=== PATIENT | male | born 1965 | race Caucasian/White ===

== ENCOUNTER 2018-05-23 10:03 | Observation (INO) | payer OTHER ==
[2018-05-23] MEDS ORDERED: MAG HYDROX/AL HYDROX/SIMETH 30 ML, HYOSCYAMINE ELIXIR 10 ML, CIMETIDINE HCL 300 MG, LID... PO STA ×4 (10:25)
[2018-05-23] MEDS ORDERED: FAMOTIDINE 20 MG/2 ML VIAL IV STA (10:25)
--- NOTE | 2018-05-23 10:28 | ED ---
General Adult HPI - General Chief complaint: Chest Pain Stated complaint: chest pain Time Seen by Provider: 05/23/18 10:10 Source: patient, RN notes reviewed, old records reviewed Mode of arrival: wheelchair Limitations: no limitations - History of Present Illness Initial comments: 52-year-old male presents for evaluation of substernal chest pain. Patient has been having episodic chest pain for the past several days. Episodes last 1-2 minutes. They are substernal chest pain reported as severe. It pain is nonexertional. Patient states it has been occurring more frequently at night. He denies any chest pain throughout the day when he is active. He has no history of CAD. No history of hypertension or diabetes. He is a current smoker. He does admit to drinking 6-8 beers daily. Denies abdominal pain. He has experienced gastric reflux in the past states this is different from previous episodes of heartburn. No significant family history of heart disease. Chest pain-free at the time my evaluation. - Related Data Home Medications Medication Instructions Recorded Confirmed Aspirin EC [Ecotrin Low Dose] 81 mg PO DAILY 05/23/18 05/23/18 Allergies Allergy/AdvReac Type Severity Reaction Status Date / Time No Known Allergies Allergy Verified 05/23/18 10:36 Review of Systems ROS Statement: Those systems with pertinent positive or pertinent negative responses have been documented in the HPI. ROS Other: All systems not noted in ROS Statement are negative. Past Medical History Past Medical History: No Reported History History of Any Multi-Drug Resistant Organisms: None Reported Past Surgical History: No Surgical Hx Reported Past Psychological History: No Psychological Hx Reported Smoking Status: Current every day smoker Past Alcohol Use History: Daily Past Drug Use History: None Reported General Exam Limitations: no limitations General appearance: alert Head exam: Present: atraumatic, normocephalic Eye exam: Present: normal appearance. Absent: PERRL, EOMI Neck exam: Present: normal inspection. Absent: tenderness, meningismus Respiratory exam: Present: normal lung sounds bilaterally. Absent: respiratory distress Cardiovascular Exam: Present: regular rate, normal rhythm GI/Abdominal exam: Present: soft. Absent: distended, tenderness, guarding, rebound Extremities exam: Present: normal inspection, normal capillary refill. Absent: pedal edema, calf tenderness Neurological exam: Present: alert, oriented X3, CN II-XII intact. Absent: motor sensory deficit Psychiatric exam: Present: normal affect, normal mood Skin exam: Present: warm, dry, intact. Absent: cyanosis, diaphoretic Course Vital Signs 05/23/18 05/23/18 10:05 11:00 Temperature 98.2 F Pulse Rate 78 71 Respiratory 16 13 Rate Blood Pressure 154/89 134/89 O2 Sat by Pulse 100 96 Oximetry - Reevaluation(s) Reevaluation #1: 05/23/18 12:05 Patient remains chest pain-free while in the emergency department EKG Findings - EKG Comments: EKG Findings:: EKG: Normal sinus rhythm, rate of 70, ME interval 168, QRS duration 80, QTC 41, no ST segment elevation Medical Decision Making - Medical Decision Making 52-year-old male presenting with intermittent chest pain. Patient asymptomatic at the time my evaluation, EKG nonischemic. Chest x-ray negative for acute cardiopulmonary disease, CBC, CMP are within normal limits, initial troponin is negative. Given the patient's risk factors he will be kept in observation for telemetry, cardiac enzymes, cardiology consultation. Case discussed discussed with admitting physician, will accept. - Lab Data Result diagrams: 05/23/18 10:29 05/23/18 10:29 Lab Results 05/23/18 05/23/18 05/23/18 Range/Units 10:29 10:29 10:29 WBC 8.3 (3.8-10.6) k/uL RBC 5.31 (4.30-5.90) m/uL Hgb 17.0 (13.0-17.5) gm/dL Hct 50.0 (39.0-53.0) % MCV 94.3 (80.0-100.0) fL MCH 32.0 (25.0-35.0) pg MCHC 34.0 (31.0-37.0) g/dL RDW 12.9 (11.5-15.5) % Plt Count 265 (150-450) k/uL Neutrophils % 71 % Lymphocytes % 20 % Monocytes % 6 % Eosinophils % 2 % Basophils % 1 % Neutrophils # 5.8 (1.3-7.7) k/uL Lymphocytes # 1.6 (1.0-4.8) k/uL Monocytes # 0.5 (0-1.0) k/uL Eosinophils # 0.1 (0-0.7) k/uL Basophils # 0.1 (0-0.2) k/uL PT (9.0-12.0) sec INR (<1.2) APTT (22.0-30.0) sec Sodium 141 (137-145) mmol/L Potassium 4.3 (3.5-5.1) mmol/L Chloride 108 H (98-107) mmol/L Carbon Dioxide 23 (22-30) mmol/L Anion Gap 10 mmol/L BUN 22 H (9-20) mg/dL Creatinine 1.06 (0.66-1.25) mg/dL Est GFR (CKD-EPI)AfAm >90 (>60 ml/min/1.73 sqM) Est GFR (CKD-EPI)NonAf 80 (>60 ml/min/1.73 sqM) Glucose 96 (74-99) mg/dL Calcium 10.0 (8.4-10.2) mg/dL Magnesium 2.4 H (1.6-2.3) mg/dL Total Bilirubin 0.8 (0.2-1.3) mg/dL AST 19 (17-59) U/L ALT 36 (21-72) U/L Alkaline Phosphatase 51 (38-126) U/L Total Creatine Kinase 71 (55-170) U/L CK-MB (CK-2) 0.6 (0.0-2.4) ng/mL CK-MB (CK-2) Rel Index 0.8 Troponin I <0.012 (0.000-0.034) ng/mL NT-Pro-B Natriuret Pep pg/mL Total Protein 7.0 (6.3-8.2) g/dL Albumin 4.6 (3.5-5.0) g/dL Lipase 57 (23-300) U/L 05/23/18 05/23/18 Range/Units 10:29 10:29 WBC (3.8-10.6) k/uL RBC (4.30-5.90) m/uL Hgb (13.0-17.5) gm/dL Hct (39.0-53.0) % MCV (80.0-100.0) fL MCH (25.0-35.0) pg MCHC (31.0-37.0) g/dL RDW (11.5-15.5) % Plt Count (150-450) k/uL Neutrophils % % Lymphocytes % % Monocytes % % Eosinophils % % Basophils % % Neutrophils # (1.3-7.7) k/uL Lymphocytes # (1.0-4.8) k/uL Monocytes # (0-1.0) k/uL Eosinophils # (0-0.7) k/uL Basophils # (0-0.2) k/uL PT 9.8 (9.0-12.0) sec INR 0.9 (<1.2) APTT 22.8 (22.0-30.0) sec Sodium (137-145) mmol/L Potassium (3.5-5.1) mmol/L Chloride (98-107) mmol/L Carbon Dioxide (22-30) mmol/L Anion Gap mmol/L BUN (9-20) mg/dL Creatinine (0.66-1.25) mg/dL Est GFR (CKD-EPI)AfAm (>60 ml/min/1.73 sqM) Est GFR (CKD-EPI)NonAf (>60 ml/min/1.73 sqM) Glucose (74-99) mg/dL Calcium (8.4-10.2) mg/dL Magnesium (1.6-2.3) mg/dL Total Bilirubin (0.2-1.3) mg/dL AST (17-59) U/L ALT (21-72) U/L Alkaline Phosphatase (38-126) U/L Total Creatine Kinase (55-170) U/L CK-MB (CK-2) (0.0-2.4) ng/mL CK-MB (CK-2) Rel Index Troponin I (0.000-0.034) ng/mL NT-Pro-B Natriuret Pep 48 pg/mL Total Protein (6.3-8.2) g/dL Albumin (3.5-5.0) g/dL Lipase (23-300) U/L Disposition Clinical Impression: Chest pain Disposition: ADMITTED IP TO THIS [facility] Condition: Stable Is patient prescribed a controlled substance at d/c from ED?: No Referrals: None,Stated [Primary Care Provider] - 1-2 days Decision to Admit Reason: Admit from EC Decision Date: 05/23/18 Decision Time: 12:06
--- NOTE | 2018-05-23 10:56 | XR ---
EXAMINATION TYPE: XR chest 2V DATE OF EXAM: 05/23/2018 COMPARISON: NONE HISTORY: Shortness of breath TECHNIQUE: Frontal and lateral views of the chest are obtained. FINDINGS: Scattered senescent parenchymal changes noted. Hyperinflation compatible with COPD. No evidence for infiltrate. No evidence for atelectasis. Heart size is stable. Mediastinal structures are stable and grossly unremarkable. No evidence for hilar prominence. Degenerative changes dorsal spine. IMPRESSION: 1. No evidence for acute pulmonary disease.
[2018-05-23 10:57] LABS: Basophils # (A) 0.1 k/uL (0-0.2); Basophils % (A) 1 %; Eosinophils # (A) 0.1 k/uL (0-0.7); Eosinophils % (A) 2 %; Lymphocytes # (A) 1.6 k/uL (1.0-4.8); Lymphocytes % (A) 20 %; MCV 94.3 fL (80.0-100.0); Monocytes # (A) 0.5 k/uL (0-1.0); Monocytes % (A) 6 %; Neutrophils # (A) 5.8 k/uL (1.3-7.7); Neutrophils % (A) 71 %; Platelet Count 265 k/uL (150-450); RBC 5.31 m/uL (4.30-5.90); RDW 12.9 % (11.5-15.5); WBC 8.3 k/uL (3.8-10.6)
[2018-05-23 11:02] LABS: INR 0.9 (<1.2); Partial Thromboplastin Time 22.8 sec (22.0-30.0); Prothrombin Time 9.8 sec (9.0-12.0)
[2018-05-23 11:04] LABS: ALT 36 U/L (21-72); AST 19 U/L (17-59); Albumin 4.6 g/dL (3.5-5.0); Alkaline Phosphatase 51 U/L (38-126); Anion Gap 10 mmol/L; Blood Urea Nitrogen 22 mg/dL (9-20); Carbon Dioxide 23 mmol/L (22-30); Chloride 108 mmol/L (98-107); Glucose 96 mg/dL (74-99); Lipase 57 U/L (23-300); Magnesium 2.4 mg/dL (1.6-2.3); Potassium 4.3 mmol/L (3.5-5.1); Sodium 141 mmol/L (137-145); Total Bilirubin 0.8 mg/dL (0.2-1.3)
[2018-05-23 11:15] LABS: Creatine Kinase 71 U/L (55-170)
[2018-05-23 11:27] LABS: Creatine Kinase MB 0.6 ng/mL (0.0-2.4); Troponin I <0.012 ng/mL (0.000-0.034)
[2018-05-23] MEDS ORDERED: ACETAMINOPHEN TAB 325 MG TAB PO PRN (12:03)
[2018-05-23] MEDS ORDERED: ASPIRIN 325 MG TAB PO STA (12:03)
[2018-05-23] MEDS ORDERED: NALOXONE 0.4 MG/ML 1 ML VIAL IV PRN (12:03)
[2018-05-23] MEDS ORDERED: MORPHINE SULFATE 4 MG/ML SYRINGE IV PRN (12:03)
[2018-05-23] MEDS ORDERED: ONDANSETRON 4 MG/2 ML VIAL IVP PRN (12:03)
[2018-05-23 14:17] VITALS: BMI 21.7
[2018-05-23] MEDS ORDERED: PNEUMOCOCCAL VACC-PNEUMOVAX 23 25 MCG/0.5 ML VIAL IM ONE (14:35)
[2018-05-23] MEDS ORDERED: INFLUENZA VACCINE (6 MOS+) 60 MCG/0.5 ML SYRINGE IM ONE (14:35)
[2018-05-23] MEDS: SODIUM CHLORIDE 0.9% 1,000 ML IV SCH (14:42)
[2018-05-23 17:45] LABS: Creatine Kinase 63 U/L (55-170)
[2018-05-23 17:58] LABS: Creatine Kinase MB 0.5 ng/mL (0.0-2.4); Troponin I <0.012 ng/mL (0.000-0.034)
[2018-05-23] MEDS: FAMOTIDINE 20 MG TAB PO SCH (20:28)
[2018-05-23] MEDS ORDERED: IPRATROPIUM-ALBUTEROL 3 ML NEB INHALATION PRN (21:06)
--- NOTE | 2018-05-23 21:08 | P.HPIM ---
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 Since then his been having chest pain/pressure like sensation squeezing type on and off lasting about less than 1 minute. Today patient had severe retrosternal chest pain is associated with left arm tingling. Denied any shortness of breath. Patient says that it does not look like her usual heart burn pain. No associated nausea vomiting or diaphoresis. Denied any recent illnesses. No cough or sputum production. Patient does have history of GERD. Denied any family history of coronary artery disease. Patient does smoke about 2 packs per day and 6-8 beers per day. Patient had last drink 3 days ago. Troponin 2 negative Chest x-ray showed no evidence of acute pulmonary disease EKG showed normal sinus rhythm. Review of Systems Constitutional: Patient denies any fever or chills . No generalized weakness or weight loss. Abdomen: Patient denied nausea vomiting and diarrhea and abdominal pain. Cardiovascular: Retrosternal chest pain. No shortness of breath. No palpitations.. Respiratory: patient denied any cough is from production. No shortness of breath Neurologic: Patient denied any numbness or tingling headache. Musculoskeletal: Patient denies any complaints of joint swelling or deformity. Skin: Negative Psychiatric: Negative Endocrine: No heat or cold intolerance. No recent weight gain. Genitourinary: No dysuria or hematuria. All other 14 point ROS negative except the above Past Medical History Past Medical History: CVA/TIA Additional Past Medical History / Comment(s): TIA 5-6 yrs ago. History of Any Multi-Drug Resistant Organisms: None Reported Past Surgical History: Orthopedic Surgery Additional Past Surgical History / Comment(s): L hand/finger surgery d/t injury Past Anesthesia/Blood Transfusion Reactions: No Reported Reaction Past Psychological History: No Psychological Hx Reported Additional Psychological History / Comment(s): Pt resides with his spouse. He uses no assistive device. He drives. He is a centeno. Smoking Status: Current every day smoker Past Alcohol Use History: Daily Additional Past Alcohol Use History / Comment(s): Pt started smoking in 1980 and is a 2 ppd smoker. Pt drinks 6-8 beers a day. Past Drug Use History: None Reported - Past Family History Father Family Medical History: CVA/TIA Additional Family Medical History / Comment(s): Father of a CVA at the age of 72 yrs. Mother Additional Family Medical History / Comment(s): Mother in a MVA. Medications and Allergies Home Medications Medication Instructions Recorded Confirmed Type Aspirin EC [Ecotrin Low Dose] 81 mg PO DAILY 05/23/18 05/23/18 History Allergies Allergy/AdvReac Type Severity Reaction Status Date / Time No Known Allergies Allergy Verified 05/23/18 10:36 Physical Exam Vitals: Vital Signs Temp Pulse Pulse Resp BP BP Pulse Ox 05/23/18 13:55 98.3 F 57 L 18 147/84 97 05/23/18 13:50 98 F 05/23/18 13:00 60 12 126/77 98 05/23/18 12:00 68 16 111/73 99 05/23/18 11:00 71 13 134/89 96 05/23/18 10:05 98.2 F 78 16 154/89 100 Intake and Output 05/23/18 05/23/18 05/23/18 06:59 14:59 22:59 Intake Total 480 Balance 480 Intake: Oral 480 Other: # Voids 0 Weight 72.575 kg PHYSICAL EXAMINATION: Patient is lying in the bed comfortably, no acute distress, awake alert and oriented.. HEENT: Normocephalic. Neck is supple. Pupils reactive. Nostrils clear. Oral cavity is moist. Ears reveal no drainage. Neck reveals no JVD, carotid bruits, or thyromegaly. CHEST EXAMINATION: Trachea is central. Symmetrical expansion. Bilateral slow air entry. Lung mcconnell clear to auscultation and percussion. CARDIAC: Normal S1, S2 with no gallops. No murmurs ABDOMEN: Soft. Bowel sounds normal. No organomegaly. No abdominal bruits. Extremities: reveal no edema. No clubbing or cyanosis Neurologically awake, alert, oriented x3 with well-coordinated movements. No focal deficits noted Skin: No rash or skin lesions. Psychiatric: Coperative. Nonsuicidal Musculoskeletal: No joint swelling or deformity. Normal range of motion. Results CBC & Chem 7: 05/23/18 10:29 05/23/18 10:29 Labs: Abnormal Lab Results - Last 24 Hours (Table) 05/23/18 Range/Units 10:29 Chloride 108 H (98-107) mmol/L BUN 22 H (9-20) mg/dL Magnesium 2.4 H (1.6-2.3) mg/dL Thrombosis Risk Factor Assmnt - DVT/VTE Prophylaxis DVT/VTE Prophylaxis: Pharmacologic Prophylaxis ordered - Choose All That Apply Each Factor Represents 1 point: Age 41-60 years Thrombosis Risk Factor Assessment Total Risk Factor Score: 1 Thrombosis Risk Factor Assessment Level: Low Risk Assessment and Plan Assessment: Atypical chest pain. Rule out ACS. Likely related to GI Possible underlying COPD Alcohol use an daily basis Nicotine addiction 2 pack per day GERD History of CVA/TIA with no residual weakness DVT Prophylaxis Plan: Patient will be continued on telemetry monitoring. Troponin 2 negative. Patient was given Maalox in the ER. Continue Pepcid. DuoNeb's when necessary. Patient will be started on thiamine and multivitamins. Alcohol abstinence has been counseled extensively. Cardiology was consulted. Further recommendations based on the clinical course. Patient will need pulmonary follow-up as an outpatient. Time with Patient: Greater than 30
[2018-05-23 23:18] LABS: Creatine Kinase 62 U/L (55-170)
[2018-05-23 23:28] LABS: Creatine Kinase MB 0.4 ng/mL (0.0-2.4); Troponin I <0.012 ng/mL (0.000-0.034)
[2018-05-24] MEDS: HEPARIN SODIUM,PORCINE 5,000 UNIT/ML 1 ML VIAL SQ SCH ×2 (00:14→07:27)
--- NOTE | 2018-05-24 08:07 | P.CRDCN ---
History of Present Illness Consult date: 05/24/18 Chief complaint: Chest pain History of present illness: This is a pleasant 52-year-old gentleman with a past medical history significant for history of TIA as well as significant history of smoking presented to the emergency room complaining of chest discomfort. He was in his usual state of health until about 3 days ago when he started experiencing chest discomfort. The patient describes intermittent episodes of chest discomfort, in the mid of the chest, with some radiation to the left arm, without any associated symptoms of shortness of breath, sweating, dizziness or lightheadedness, nausea or vomiting, or syncope. The chest discomfort is of variable duration. Its also not exertional and have any mainly during the night. The EKG showed sinus rhythm without any significant ST or T-wave abnormalities. 3 sets of cardiac enzymes were checked and came in to be unremarkable. The chest x-ray did not show any acute abnormalities. Interval past medical history he does have no coronary artery disease, diabetes , hypertension, or dyslipidemia. He did have an episode of TIA in the past with no residual symptoms. The patient continues to smoke about 2 packs of cigarettes every day. He stated that he is working on smoking cessation. He drinks about 8 beers everyday. No immediate family member with coronary artery disease. Past Medical History Past Medical History: CVA/TIA Additional Past Medical History / Comment(s): TIA 5-6 yrs ago. History of Any Multi-Drug Resistant Organisms: None Reported Past Surgical History: Orthopedic Surgery Additional Past Surgical History / Comment(s): L hand/finger surgery d/t injury Past Anesthesia/Blood Transfusion Reactions: No Reported Reaction Past Psychological History: No Psychological Hx Reported Additional Psychological History / Comment(s): Pt resides with his spouse. He uses no assistive device. He drives. He is a centeno. Smoking Status: Current every day smoker Past Alcohol Use History: Daily Additional Past Alcohol Use History / Comment(s): Pt started smoking in 1980 and is a 2 ppd smoker. Pt drinks 6-8 beers a day. Past Drug Use History: None Reported - Past Family History Father Family Medical History: CVA/TIA Additional Family Medical History / Comment(s): Father of a CVA at the age of 72 yrs. Mother Additional Family Medical History / Comment(s): Mother in a MVA. Medications and Allergies Home Medications Medication Instructions Recorded Confirmed Type Aspirin EC [Ecotrin Low Dose] 81 mg PO DAILY 05/23/18 05/23/18 History Allergies Allergy/AdvReac Type Severity Reaction Status Date / Time No Known Allergies Allergy Verified 05/23/18 10:36 Physical Exam Vitals: Vital Signs Temp Pulse Pulse Resp BP BP BP 05/24/18 07:59 18 05/24/18 04:00 18 05/24/18 03:59 97.6 F 62 18 135/80 05/24/18 00:00 16 05/23/18 23:57 98.1 F 76 16 122/70 05/23/18 20:00 98.6 F 85 16 136/74 05/23/18 16:00 68 18 05/23/18 15:43 98.5 F 68 18 129/85 05/23/18 15:40 05/23/18 13:55 98.3 F 57 L 18 147/84 05/23/18 13:50 98 F 05/23/18 13:00 60 12 126/77 05/23/18 12:00 68 16 111/73 05/23/18 11:00 71 13 134/89 05/23/18 10:05 98.2 F 78 16 154/89 Pulse Ox 05/24/18 07:59 05/24/18 04:00 05/24/18 03:59 97 05/24/18 00:00 05/23/18 23:57 98 05/23/18 20:00 96 05/23/18 16:00 05/23/18 15:43 97 05/23/18 15:40 98 05/23/18 13:55 97 05/23/18 13:50 05/23/18 13:00 98 05/23/18 12:00 99 05/23/18 11:00 96 05/23/18 10:05 100 Intake and Output 05/23/18 05/24/18 05/24/18 22:59 06:59 14:59 Other: Voiding Method Toilet Toilet Toilet # Voids 1 1 1 - Constitutional General appearance: no acute distress - Respiratory Respiratory: bilateral: CTA - Cardiovascular Rhythm: regular Heart sounds: normal: S1, S2 Results 05/23/18 10:29 05/23/18 10:29 Cardiac Enzymes 05/23/18 05/23/18 05/23/18 Range/Units 10:29 10:29 17:21 AST 19 (17-59) U/L CK-MB (CK-2) 0.6 0.5 (0.0-2.4) ng/mL Troponin I <0.012 <0.012 (0.000-0.034) ng/mL 05/23/18 Range/Units 22:23 AST (17-59) U/L CK-MB (CK-2) 0.4 (0.0-2.4) ng/mL Troponin I <0.012 (0.000-0.034) ng/mL Coagulation 05/23/18 Range/Units 10:29 PT 9.8 (9.0-12.0) sec APTT 22.8 (22.0-30.0) sec CBC 05/23/18 Range/Units 10:29 WBC 8.3 (3.8-10.6) k/uL RBC 5.31 (4.30-5.90) m/uL Hgb 17.0 (13.0-17.5) gm/dL Hct 50.0 (39.0-53.0) % Plt Count 265 (150-450) k/uL Comprehensive Metabolic Panel 05/23/18 Range/Units 10:29 Sodium 141 (137-145) mmol/L Potassium 4.3 (3.5-5.1) mmol/L Chloride 108 H (98-107) mmol/L Carbon Dioxide 23 (22-30) mmol/L BUN 22 H (9-20) mg/dL Creatinine 1.06 (0.66-1.25) mg/dL Glucose 96 (74-99) mg/dL Calcium 10.0 (8.4-10.2) mg/dL AST 19 (17-59) U/L ALT 36 (21-72) U/L Alkaline Phosphatase 51 (38-126) U/L Total Protein 7.0 (6.3-8.2) g/dL Albumin 4.6 (3.5-5.0) g/dL Current Medications Generic Name Dose Route Start Last Admin Trade Name Freq PRN Reason Stop Dose Admin Acetaminophen 650 mg 05/23/18 12:03 Tylenol Tab PO Q6HR PRN Mild Pain or Fever > 100.5 Albuterol/Ipratropium 3 ml 05/23/18 21:06 Duoneb 0.5 Mg-3 Mg/3 Ml Soln INHALATION RT-QID PRN Shortness Of Breath Or Wheezing Famotidine 20 mg 05/23/18 21:00 05/23/18 20:28 Pepcid PO 20 mg BID CONCHITA Administration Heparin Sodium (Porcine) 5,000 unit 05/24/18 00:00 05/24/18 07:27 Heparin SQ Not Given Q8HR CONCHITA Sodium Chloride 1,000 mls @ 75 mls/hr 05/23/18 12:15 05/23/18 14:42 Saline 0.9% IV Not Given .[id number] CONCHITA Morphine Sulfate 4 mg 05/23/18 12:03 05/24/18 05:16 Morphine Sulfate (Inj) IV 4 mg Q4HR PRN Administration Severe Pain Multivitamins 1 each 05/24/18 12:00 Theragran PO DAILY@1200 CONCHITA Naloxone HCl 0.2 mg 05/23/18 12:03 Narcan IV Q2M PRN Opioid Reversal Ondansetron HCl 4 mg 05/23/18 12:03 Zofran IVP Q8HR PRN Nausea And Vomiting Thiamine HCl 100 mg 05/24/18 12:00 Vitamin B-1 PO DAILY@1200 CONCHITA Intake and Output 05/23/18 05/24/18 05/24/18 22:59 06:59 14:59 Other: Voiding Method Toilet Toilet Toilet # Voids 1 1 1 05/23/18 10:29 05/23/18 10:29 Assessment and Plan Assessment: Assessment #1 intermittent episodes of atypical chest discomfort #2 significant history of smoking #3 history of TIA in the past Plan #1 acute coronary event was ruled out. The patient did have 3 sets of cardiac enzymes and EKG and old came in to be unremarkable #2 severe underlying coronary artery disease to be ruled out. Giving the patient significant history of smoking and history of TIA in the past #3 I will obtain an echocardiogram was Doppler #4 stress test to rule out any severe CAD. That can happen either as inpatient or outpatient depends on the patient's symptoms. Thank you for allowing us participate in his care.
[2018-05-24] MEDS: FAMOTIDINE 20 MG TAB PO SCH ×2 (10:46→11:18)
[2018-05-24] MEDS: SODIUM CHLORIDE 0.9% 1,000 ML IV SCH (10:50)
[2018-05-24] MEDS ORDERED: PANTOPRAZOLE 40 MG TABLET PO SCH (11:45)
[2018-05-24] MEDS ORDERED: MULTIVITAMINS, THERA 1 EACH TAB PO SCH (12:00)
[2018-05-24] MEDS ORDERED: THIAMINE 100 MG TAB PO SCH (12:00)
[2018-05-24 12:04] VITALS: BP 120/76; PULSE 75; RESP 18; TEMP 98
== END 2018-05-24 12:41 | disposition home or self-care (01) ==
LOC: EC 10:03 → 1SOBS 12:04
PROVIDERS: ADMIT Internal Medicine; ATTEND Internal Medicine
DX: R07.2 Precordial pain (principal); R20.2 Paresthesia of skin; K21.9 Gastro-esophageal reflux disease without esophagitis; F10.10 Alcohol abuse, uncomplicated; F17.210 Nicotine dependence, cigarettes, uncomplicated; Z86.73 Personal history of transient ischemic attack (TIA), and cerebral infarction without residual deficits; Z79.82 Long term (current) use of aspirin; Z23 Encounter for immunization
CPT/HCPCS: 96375; 96374; 99285; 36415; 93005; 83880; 80053; 82550; 82553; 83690; 83735; 84484; 85025; 85610; 85730; 71046; 90732; 90686; G0378 ×2; G0008; G0009; J2270

== ENCOUNTER → 2024-05-28 | Outpatient (CLI) | payer BC ==
--- NOTE | 2024-05-28 09:59 | MR ---
EXAMINATION TYPE: MR shoulder RT wo con DATE OF EXAM: 05/28/2024 9:01 AM COMPARISON: Radiograph 05/26/2024 CLINICAL INDICATION: Male, 58 years old with history of M25.511 R shoulder pain, Right shoulder pain for 3 months TECHNIQUE: Multiplanar, multisequence imaging of the right shoulder is performed without contrast. FINDINGS: There is thickening and heterogeneous signal intracapsular portion of the lung and biceps tendon. Int racapsular portion appears intact but with moderate tenosynovial fluid. Diffuse heterogeneity and intrasellar within the subscapularis tendon. The majority of the tendon rem ains intact. Moderate to severe degenerative change AC joint with joint space narrowing, marginal spurring, and ca psular hypertrophy. Reactive subchondral marrow edema seen. Inferior spurring encroaches onto the sub acromial space. There is a large full-thickness tear of the entire supraspinatus tendon measuring 3.6 cm long and 2.6 cm AP. Fluid within the intervening gap. Diffuse thickening and heterogeneity of the infraspinatus tendon. No atrophy of the rotator cuff musculature. Mild effusion within the subacromial/subdeltoid bursa. There is some fluid signal undercutting the labral chondral junction superior glenoid from the biceps anchor to the posterior aspect of the superior labrum. No para labral cyst. Glenohumeral joint appears intact but with mild thickness cartilage loss along the superior humeral h ead articular surface. Small glenohumeral joint effusion may be physiologic. No Hill-Sachs deformity or os acromiale. Some patchy red marrow signal without suspicious bone marrow replacement. IMPRESSION: 1. Moderate to severe diffuse rotator cuff tendinosis. There is a large, full-thickness tear involvin g the entire supraspinatus tendon. Stump retracted by 3.6 cm to below the acromion. 2. No rotator cuff muscle atrophy. 3. Moderate to severe AC joint OA with inferior spurring which may contribute to subacromial impingem ent. 4. Intracapsular long head biceps tendinosis and mild tenosynovitis. 5. Mild cartilage thinning along the superior humeral head articular surface. Small superior labral t ear suggested. [facility], Workstation: [facility], 05/28/2024 9:56 AM
== END | disposition home or self-care (01) ==
LOC: RADMRIMAIN 08:04
PROVIDERS: ATTEND Orthopaedic Surgery
DX: M67.813 Other specified disorders of tendon, right shoulder (principal); M19.011 Primary osteoarthritis, right shoulder; M65.911 Unspecified synovitis and tenosynovitis, right shoulder

== ENCOUNTER → 2024-07-13 | Outpatient (CLI) | payer BC ==
[2024-07-13 20:42] LABS: Basophils # (A) 0.07 X 10*3/uL (0.00-0.10); Basophils % (A) 0.8 %; Eosinophils # (A) 0.11 X 10*3/uL (0.04-0.35); Eosinophils % (A) 1.3 %; HCT 47.1 % (39.6-50.0); HGB 15.9 g/dL (13.0-17.0); Lymphocytes # (A) 1.73 X 10*3/uL (0.90-5.00); Lymphocytes % (A) 20.3 %; MCHC 33.8 g/dL (32.0-37.0); MCV 94.8 FL (80.0-97.0); Mean Platelet Volume 10.5 FL (9.5-12.2); Monocytes # (A) 0.57 X 10*3/uL (0.20-1.00); Monocytes % (A) 6.7 %; NRBC Per 100 WBC 0 X 10*3/uL (0.00-0.01); Neutrophils # (A) 6.02 X 10*3/uL (1.80-7.70); Neutrophils % (A) 70.8 %; Platelet Count 248 X 10*3/uL (140-440); RBC 4.97 X 10*6/uL (4.40-5.60); RDW 12.4 % (11.5-14.5); WBC 8.51 X 10*3/uL (4.50-10.00)
[2024-07-13 21:05] LABS: Anion Gap 10.6 mmol/L (4.00-12.00); Carbon Dioxide 26.4 mmol/L (21.6-31.8); Potassium 3.8 mmol/L (3.5-5.5)
== END | disposition home or self-care (01) ==
LOC: LABWHC1 13:12
PROVIDERS: ATTEND Orthopaedic Surgery
DX: Z01.818 Encounter for other preprocedural examination (principal); M75.41 Impingement syndrome of right shoulder
CPT/HCPCS: 36415; 80051; 85025; 93005

== ENCOUNTER 2024-07-22 05:50 | Day surgery (SDC) | payer BC ==
[2024-07-17 11:02] VITALS: BMI 25.1
--- NOTE | 2024-07-21 13:48 | HP ---
HISTORY AND PHYSICAL ANTICIPATED DATE OF SURGERY: 07/22/2024. HISTORY OF PRESENT ILLNESS: Joaquín Galicia is a 58-year-old gentleman seen with progressive right shoulder pain. We discussed treatment options. He elected to proceed with right shoulder arthroscopy. Consent was obtained. PAST MEDICAL HISTORY: Noncontributory. SURGICAL HISTORY: Noncontributory. DAILY MEDICATIONS: None. ALLERGIES: None reported. SOCIAL HISTORY: Smokes cigarettes. PHYSICAL EVALUATION OF RIGHT SHOULDER: Flexion is 150 degrees. Abduction is 130 degrees. External rotation is 40 degrees with some pain and weakness. He is tender along the anterolateral acromion, rotator cuff insertion as well as long head of biceps tendon, and bicipital groove. Impingement sign is positive at 70 degrees. Drop-arm sign is positive. Distal neurovascular exam is intact. IMAGING DATA: Radiographs of right shoulder, type 3 acromion, acromioclavicular joint osteoarthritis, cystic changes of the tuberosity. MRI of right shoulder, we retracted rotator cuff tendon tear, severe acromioclavicular joint osteoarthritis, biceps tendinitis. IMPRESSION: 1. Right shoulder impingement with rotator cuff tear. 2. Right shoulder acromioclavicular joint osteoarthritis. 3. Right shoulder bicipital tendinitis. PLAN: Right shoulder arthroscopy with subacromial decompression, arthroscopic rotator cuff repair, Abbe, biceps tenodesis, and debridement. MMODL / IJN: [id number] /
[2024-07-22] MEDS ORDERED: droPERidol 2.5 MG/ML VIAL IVP ONE (06:14)
[2024-07-22] MEDS ORDERED: HYDROmorphone 0.5 MG/0.5 ML SYRINGE IVP PRN (06:14)
[2024-07-22] MEDS ORDERED: LIDOCAINE 1% (10MG/ML) FOR IV START INTRADERMA PRN (06:14)
[2024-07-22] MEDS: IV FLUID CONTINUATION 1,000 ML IV ONE (06:28)
[2024-07-22] MEDS: LACTATED RINGERS 1,000 ML IV SCH (06:43)
[2024-07-22] MEDS: ONDANSETRON 4 MG/2 ML VIAL IVP ONE (06:43)
[2024-07-22] MEDS: DEXAMETHASONE SOD PHOSPHATE 4 MG/ML 1 ML VIAL IV ONE (06:43)
[2024-07-22] MEDS: MIDAZOLAM 2 MG/2 ML VIAL IV ONE (06:46)
[2024-07-22] MEDS ORDERED: PROPOFOL 10 MG/ML 20 ML VIAL IV ONE (07:44)
[2024-07-22] MEDS ORDERED: DEXAMETHASONE SOD PHOSPHATE 4 MG/ML 1 ML VIAL ONE (07:44)
[2024-07-22] MEDS ORDERED: LIDOCAINE 1% INJ 10MG/ML (20 ML MDV) ONE (07:44)
[2024-07-22] MEDS ORDERED: SUCCINYLCHOLINE CHLORIDE 200 MG/10 ML VIAL IV ONE (07:44)
[2024-07-22] MEDS ORDERED: ROPIVACAINE 5 MG/ML 30 ML VIAL ONE (07:44)
[2024-07-22] MEDS ORDERED: LIDOCAINE 4% LTA KIT (4 ML) TOPICAL ONE (07:44)
[2024-07-22 09:50] VITALS: TEMP 97
--- NOTE | 2024-07-22 09:54 | P.OP ---
Date of Procedure: 07/22/24 Preoperative Diagnosis: Right shoulder impingement Postoperative Diagnosis: 1. Right shoulder rotator cuff tear 2. Right shoulder impingement 3. Right shoulder partial long head biceps tendon tear 4. Right shoulder acromioclavicular joint osteoarthritis 5. Right shoulder superficial labral tear Procedure(s) Performed: 1. Right shoulder arthroscopic rotator cuff repair 2. Right shoulder arthroscopic subacromial decompression 3. Right shoulder arthroscopic biceps tenodesis 4. Right shoulder arthroscopic Abbe procedure 5. Right shoulder arthroscopic debridement labral tear Implants: 4Arthrex 4.75 swivel lock anchors 1Arthrex 5.5 swivel lock anchor Anesthesia: GETA, regional ( interscalene block) Surgeon: Prosper Moser Beadworker #1: Alex Dimas Estimated Blood Loss (ml): 10 Pathology: none sent Condition: stable Disposition: PACU Indications for Procedure: 58-year-old gentleman seen with progressive right shoulder pain. After having treatment options discussed, he elected to proceed with arthroscopy. Operative Findings: See description of procedure Description of Procedure: Patient underwent an interscalene block by department of anesthesia. The patient was then taken to the operative suite. The patient underwent a general anesthetic by the department of anesthesia. The patient was placed into a lateral position and secured. There was appropriate padding of the bony prominence. Right shoulder was then prepped and draped in normal sterile orthopedic fashion. We placed the extremity in 10 pounds of longitudinal traction. A posterior incision was now made for a posterior working portal site. The trocar and cannula were inserted into the glenohumeral joint. Arthroscopy was initiated. Spinal needle was now inserted anteriorly, to ascertain the anterior working portal site. An incision was now made in that area, a trocar was inserted followed by a probe. There was a superficial labral tear present. There were grade I chondromalacia changes of the glenoid fossa without tears. There was partial tearing long head biceps tendon along with a large rotator cuff tendon tear. I reduced a motorized shaver and debrided out the superficial labral tear. I now introduced the cannula through the anterior portal site. I passed a loop and tack stitch through the biceps tendon and release her from the superior labral anchor. With the assistance of Clark GARCIA partial hole at the interval for insertion of an anchor. The suture limb was now passed through the eyelet of an Arthrex 4.75 swivel lock anchor. I placed the eyelet into the prepunched hole, held in position while Clark GARCIA tensioned the suture and deployed the anchor with good fixation noted. The residual suture limb was clipped. We had a stable appearing biceps tenodesis. The labrum was probed and appeared stable. Instruments were now removed from the glenohumeral joint. Utilizing the posterior working portal site, the trocar and cannula were inserted into the subacromial space. Arthroscopy initiated. I made an incision 2 fingerbreadths lateral to the acromion. I introduced my trocar followed by my ArthroCare ablator. I now began ablating thick subacromial bursal tissue, which exposed the undersurface of the anterior acromion. There was diminished subacromial space. There was a very prominent anterior acromion. A motorized bur was introduced and a subacromial decompression was performed. I also excised some osteophytes off the inferior aspect of the distal clavicle. The AC joint was visualized and noted to be fairly arthritic. The motorized bur was introduced in the anterior portal site and a Abbe procedure was performed without difficulty, decompressing the AC joint nicely. I turned my attention to the rotator cuff. There was a 3 cm rotator cuff tear. I debrided the margins getting down to stable tendon tissue. I introduced my motorized bur and abraded the footprint area, getting some petechial bleeding. I now made an accessory portal site off the lateral aspect of the acromion. I punched 2 holes medial for medial row fixation with the assistance of Clark GARCIA carefully tapping the punch with a mallet as I held the punch and the camera. I now introduced both anchors into the pre-punched holes and Clark GARCIA tapped them with the mallet as I held anchors and the camera. Clark GARCIA now screwed the anchors in place a while I held the anchor guide and camera. All 8 limbs of suture were now passed through good bites of rotator cuff tendon. I now punched 2 holes for lateral row fixation again I held the punch and camera while Clark GARCIA used a mallet to tap in the punch. We now passed sutures through both anchors and individually I introduced the anchors into the pre-punch holes I held the anchor guide in position with one hand holding the camera with the other hand while Clark GARCIA tensioned the sutures and screwed in the anchors one at a time. All residual suture limbs were now clipped. We had good compression of the tendon along the entire footprint. Instruments now removed from the portal sites. All portal sites were approximated with nylon suture. Sterile dressings were applied followed by a shoulder immobilizer. Alex GARCIA assisted in this complex case. The patient was awakened, transferred to a bed, and taken to recovery in stable condition.
[2024-07-22 09:58] VITALS: RESP 18
[2024-07-22 11:05] VITALS: BP 145/76; PULSE 73
--- NOTE | 2024-07-22 11:08 | P.ANPRN ---
Procedure Note - Anesthesia - Nerve Block Performed Right Interscalene Single Time Out Performed: Yes Date of Procedure: 07/22/24 Procedure Start Time: 06:45 Procedure Stop Time: 06:49 Location of Patient: PreOp Indication: Acute Post-Operative Pain, Requested by Surgeon Sedation Type: Sedate with meaningful contact maintained Preparation: Sterile Prep Position: Supine Needle Types: Pajunk Needle Gauge: 21 Ultrasound used to visualize needle placement: Yes Ultrasound used to observe medication spread: Yes Blood Aspirated: No Pain Paresthesia on Injection Noted: No Resistance on Injection: Normal Image Stored and Saved: Yes Events: Uneventful and Well Tolerated (Ropivacaine 0.5% 20 cc plus dexamethasone 4 mg)
== END 2024-07-22 11:30 | disposition home or self-care (01) ==
LOC: OR 05:50
PROVIDERS: ATTEND Orthopaedic Surgery
DX: M75.101 Unspecified rotator cuff tear or rupture of right shoulder, not specified as traumatic (principal); M75.41 Impingement syndrome of right shoulder; S46.111A Strain of muscle, fascia and tendon of long head of biceps, right arm, initial encounter; M19.011 Primary osteoarthritis, right shoulder; S43.51XA Sprain of right acromioclavicular joint, initial encounter; G89.18 Other acute postprocedural pain; F17.210 Nicotine dependence, cigarettes, uncomplicated
CPT/HCPCS: 64415; 29827; 29828; 29824; C1713 ×3; J2250; J0330; J1100; J0690; J2405; J2003; J2795; J2704

== ENCOUNTER 2024-08-21 15:02 | Day surgery (SDC) | payer BC ==
[2024-08-18 16:12] VITALS: BMI 25.7
[2024-08-21 15:29] VITALS: TEMP 98.3
[2024-08-21] MEDS: IV FLUID CONTINUATION 1,000 ML IV ONE (15:30)
[2024-08-21] MEDS: LACTATED RINGERS 1,000 ML IV SCH (15:33)
[2024-08-21] MEDS ORDERED: PROPOFOL 10 MG/ML 20 ML VIAL IV ONE (16:21)
--- NOTE | 2024-08-21 16:33 | P.PCN ---
Date of Procedure: 08/21/24 Procedure(s) Performed: BRIEF HISTORY: Patient is a 58-year-old pleasant white male scheduled for an elective sigmoidoscopy as a part of evaluation of large sigmoid colon polypoid lesion noted on recent screening colonoscopy by Dr. Milian 2 months ago at [facility].. He did have biopsies of this polypoid lesion done which where nonmalignant. He is not scheduled for repeat sigmoidoscopy for possible polypectomy. PROCEDURE PERFORMED: Flexible sigmoidoscopy with snare polypectomy PREOPERATIVE DIAGNOSIS: Follow-up sigmoid colon polyp. IV sedation per Anesthesia. PROCEDURE: After informed consent was obtained, the patient, was brought into the endoscopy unit. IV sedation was administered by Anesthesia under continuous monitoring. Digital rectal examination was normal. Initially the Olympus CF-160 flexible video colonoscope was then inserted in the rectum, gradually advanced into the splenic flexure without any difficulty. Careful examination was performed as the scope was gradually being withdrawn. Mucosa of the, descending colon, appeared normal. In the proximal sigmoid colon at 35 cm from the anal verge there was a 1.5 cm inflamed looking sigmoid polyp identified which was removed by snare polypectomy and complete polypectomy established. Scattered sigmoid diverticulosis seen. Rest of the sigmoid colon, and rectum appeared normal. Retroflexion was performed in the rectum and no lesions were seen. The patient tolerated the procedure well. IMPRESSION: 1.5 cm thick pedunculated inflamed appearing sigmoid colon polyp status post polypectomy and complete polypectomy accomplished Scattered sigmoid diverticulosis. RECOMMENDATIONS: Findings of this examination were discussed with the patient and his family. He was advised to follow with the biopsy results and have repeat colonoscopy in 3 years..
[2024-08-21 17:00] VITALS: BP 159/94; PULSE 77; RESP 15
== END 2024-08-21 17:15 | disposition home or self-care (01) ==
LOC: ORWHC2ENDO 15:02
PROVIDERS: ATTEND Internal Medicine Gastroenterology
DX: K63.5 Polyp of colon (principal); K63.89 Other specified diseases of intestine
CPT/HCPCS: 88305; 45338; J2704